=== PATIENT | male | born 1995 | race Hispanic/Latino ===

== ENCOUNTER 2019-01-02 05:56 | Emergency (ER) | payer OTHER ==
[~2019-01-02] VITALS: Ht 172.7 cm; Wt 139.7 kg
[2019-01-02] MEDS ORDERED: IBUPROFEN 200 MG TAB PO ONE (06:30)
[2019-01-02] MEDS ORDERED: ACETAMINOPHEN 325 MG TAB PO ONE (06:30)
== END 2019-01-02 06:45 | disposition home or self-care (01) ==
LOC: FSED 05:56
DX: J03.90 Acute tonsillitis, unspecified (principal); R05 Cough
CPT/HCPCS: 83518; 99283